=== PATIENT | female | born 1935 | race Caucasian/White ===

== ENCOUNTER → 2017-12-08 | Outpatient (CLI) | payer MEDICARE ==
[~2017-12-08] MED LIST: IOHEXOL 180 MG/ML 10 ML VIAL.; LIDOCAINE 1% PF 2 ML VIAL.; methylPREDNISolone ACETATE 40 MG/ML VIAL.; methylPREDNISolone ACETATE 80 MG/ML VIAL.
== END ==
LOC: PNCL 07:50
DX: M51.16 Intervertebral disc disorders with radiculopathy, lumbar region (principal); K21.9 Gastro-esophageal reflux disease without esophagitis; I10 Essential (primary) hypertension; Z85.3 Personal history of malignant neoplasm of breast; Z90.710 Acquired absence of both cervix and uterus; Z98.890 Other specified postprocedural states; Z88.8 Allergy status to other drugs, medicaments and biological substances
CPT/HCPCS: 62323; J1030; J1040; Q9965

== ENCOUNTER → 2017-12-22 | Outpatient (CLI) | payer MEDICARE | END | disposition home or self-care (01) | LOC: PNCL 07:50 | DX: M51.16 Intervertebral disc disorders with radiculopathy, lumbar region (principal); I10 Essential (primary) hypertension; K21.9 Gastro-esophageal reflux disease without esophagitis; Z85.3 Personal history of malignant neoplasm of breast | CPT/HCPCS: G0463 ==

== ENCOUNTER → 2018-01-07 | Outpatient (CLI) | payer MEDICARE ==
[~2018-01-07] MED LIST changes: -LIDOCAINE 1% PF 2 ML VIAL.; +LIDOCAINE 2% PF 2ML VIAL.
== END | disposition home or self-care (01) ==
LOC: PNCL 08:43
DX: M51.16 Intervertebral disc disorders with radiculopathy, lumbar region (principal); I10 Essential (primary) hypertension; K21.9 Gastro-esophageal reflux disease without esophagitis; Z88.1 Allergy status to other antibiotic agents; Z88.8 Allergy status to other drugs, medicaments and biological substances; Z79.82 Long term (current) use of aspirin; Z79.899 Other long term (current) drug therapy; Z85.3 Personal history of malignant neoplasm of breast; Z90.710 Acquired absence of both cervix and uterus; Z98.890 Other specified postprocedural states
CPT/HCPCS: 62323; J1030; J1040; J2001; Q9965

== ENCOUNTER → 2018-01-21 | Outpatient (CLI) | payer MEDICARE ==
[~2018-01-21] MED LIST changes: +ASPI81TA50 PO; +BENZ200C47 PO; +CA/D1TAB PO; +FLUT16SP NS; -IOHEXOL 180 MG/ML 10 ML VIAL.; -LIDOCAINE 2% PF 2ML VIAL.; +LOSA50TA6 PO; +MENT118G TP; +MULT-650 PO; +PANT20TA2 PO; +[UNRECOGNIZED DRUG - CODE] PO; -methylPREDNISolone ACETATE 40 MG/ML VIAL.; -methylPREDNISolone ACETATE 80 MG/ML VIAL.
--- NOTE | 2018-01-21 14:53 | PAIN ---
DATE OF SERVICE: 01/21/2018 DIAGNOSES: Lumbar radiculopathy with lumbar degenerative disk disease. HISTORY OF PRESENT ILLNESS: The patient is an 82-year-old female who returns for followup status post lumbar epidural steroid injection x 2. The patient reports doing very well, about 80%-90% improvement overall, still some pain in the left posterior gluteus and hip, but much reduced after the second injection. The patient reports it is tingling and dull, but very tolerable, it is only there intermittently. The patient reports pain is 3 on a scale of 10 at its worse, 2 on average, 2 at its least and is a 2 today. The patient reports she is sleeping well at night, increasing her activity with greater distance walking and doing household activities, traveling. She has another trip coming up, which she will be riding in the car as well as an airplane and she is feeling very confident about this. We will have the level of her pain being controlled. The patient reports no new motor or sensory deficits, no new bowel or bladder incontinence or other complaints. PHYSICAL EXAMINATION: VITAL SIGNS: The patient's blood pressure 146/66, pulse 79, respirations 20, temperature is 98.1 degrees Fahrenheit, height is 5 feet 9 inches, weight is 154 pounds. GENERAL: The patient is awake, alert, oriented, appropriate, very pleasant demeanor. HEENT: Head shows normocephalic, atraumatic. The patient wears eyeglasses. Extraocular movements intact, symmetrical. Oral cavity: Mucous membranes moist and pink. Dentition is intact. NECK: Shows anterior throat supple without palpable lymphadenopathy noted. Swallow reflex is symmetrical. CHEST: Shows normal on inspection. Breath sounds clear to auscultation bilaterally. HEART: Shows S1 and S2 clear. No murmurs auscultated. ABDOMEN: Soft, nontender, nondistended. BACK: Shows spine grossly in the midline. Slight exaggeration of thoracic kyphosis, mild flattening of lumbar lordotic curvature. Lumbar paraspinous musculature shows symmetrical on inspection and palpation shows some very mild tenderness in the low lumbar distribution on the left only, but without radiation. The patient has good rotational motion of lumbar spine, both laterally as well as extension and flexion without difficulty. EXTREMITIES: Lower extremities show deep tendon reflexes 2+ in the patellar, 1+ tendo calcaneus tendons are equal. Motor exam is strong with 5/5 dorsiflexion, extension and equal. Peripheral pulses are 1+ posterior tibial. No peripheral edema is noted. Options were discussed with the patient. The patient's chart was reviewed as her current medication regimen and updated. Current review of systems is updated today as well and we will hold on any further injections. At this time, she is doing very well. The patient will increase her activity as tolerated and was counseled as to stretching and strengthening exercises as well as return if necessary if the pain does begin to worsen or return and we will have her return as needed. LUCI WAKEFIELD MD DR: NATALIE/jessica JOB#: [id number] / [id number]
== END | disposition home or self-care (01) ==
LOC: PNCL 08:46
PROVIDERS: ATTEND Anesthesiology
DX: M51.16 Intervertebral disc disorders with radiculopathy, lumbar region (principal)
CPT/HCPCS: G0463

== ENCOUNTER → 2018-08-11 | Outpatient (CLI) | payer MEDICARE ==
[~2018-08-11] MED LIST changes: +ACET500T68 PO; +DONE5TAB56 PO; +LOSA-73 PO; -LOSA50TA6 PO; +METO25TA4 PO; +RANI150T2 PO; +REGADENOSON 0.4 MG/5 ML DISP.SYRIN. IV ONE
--- NOTE | 2018-08-11 11:30 | RAD ---
MR#: [id number] Date of Study: 08/11/2018 Ordering Physician: ARELIS ROJAS, Referring Physician: ARELIS ROJAS, Tech: Radames Keane MBA, RDMS, RVT, RDCS, RTR APPROVED REPORT Patient Location: OUT-PATIENT Laterality:Bilateral Indications Dizziness and Vertigo Doppler Spectral Velocity Analysis Right Left pCCA 91/12 cm/spCCA 128/22 cm/s mCCA 99/14 cm/smCCA 97/14 cm/s dCCA 91/16 cm/sdCCA 75/15 cm/s Bulb 59/11 cm/sBulb 93/14 cm/s ECA 84/ cm/sECA 103/ cm/s pICA 108/27 cm/spICA 70/20 cm/s Dann 96/21 cm/smICA 85/24 cm/s dICA 76/23 cm/sdICA 103/31 cm/s Vert. 64/ cm/sVert. 64/ cm/s Subcl. 86/ cm/sSubcl. 137/ cm/s ICA/CCA 1.09ICA/CCA 0.80 Findings Grayscale images of the bilateral common carotid, internal and external carotid vessels reveals mild intimal hyperplasia later on the left than the right. Spectral waveforms and color Doppler on the internal carotid vessels reveal normal velocities without any focal high-grade stenosis identified. Grayscale images are grossly unremarkable. Normal ICA to C CA ratios noted. Bilateral vertebral velocities are antegrade. Critical Notification Critical Value: No <Conclusion> No significant high-grade internal carotid artery stenosis bilaterally. Signed by : Donn Hernandez, Electronically Approved : 08/11/2018 11:29:57
--- NOTE | 2018-08-11 12:43 | RAD ---
MR#: [id number] Date of Study: 08/11/2018 Ordering Physician: ARELIS ROJAS Referring Physician: YOLY WHITTEN Tech: RT Rosy Frausto) (N) APPROVED REPORT Test Type: Pharmacological Stress Nurse/Tech: Juan C Price RN Test Indications: CP, palpitations Cardiac History: HTN Medications: See EMR Medical History: See EMR Resting ECG: SR Resting Heart Rate: 62 bpm Resting Blood Pressure: 169/67mmHg Pretest Chest Pain: No chest pain Nurse/Tech Notes S1S2. Lung sounds clear. Consent: The procedure was explained to the patient in lay terms. Informed consent was witnessed. Augusto eout was entered into [facility]. History and Stress Test performed by RT Jett (Adam) (N) Pharm. Details Pharmacologic stress testing was performed using 0.4mg per 5ml of regadenoson given intravenously ove r 7-10 seconds. Stress Symptoms No chest pain or symptoms. Pt did c/o dizziness. POST EXERCISE Reason for Termination: Infusion complete Max HR: 96 bpm Max Blood Pressure: 153/60mmHg Chest Pain: No. Arrhythmia: No. ST Change: No. INTERPRETATION Stress EKG Conclusion: The resting EKG shows a sinus rhythm and mild nonspecific ST T wave changes. The stress EKG shows no significant changes from baseline. No EKG evidence of stress induced ischemia. Imaging Protocol IMAGE PROTOCOL: Rest Tc-99m/stress Tc-99m 1 day Rest: Stress: Viability: Radiopharm.Tc99m OgfubjdwhFz20f Sestamibi Dose10.6mCi 33mCi Duration 15min. 12min. Img Date 08/11/2018 08/11/2018 Inj-Img Vsds54guw. 60min. Rest Admin Site:IV - Right AntecubitalAdministrator:RT Rosy Camarena)(N) Stress Admin Site: IV - Right AntecubitalAdministrator: RT Rosy Frausto)(N) STRESS DATA End Diast. Vol.68.0mlAv. Heart Rate74.0bpm End Syst. Vol.13.0mlCO Index BSA0.0L/min Myocardial Oqak965.0gEject. Ryqvgruh43.0% Stress Rates Pk. Fill Rate2.61EDV/secLVtime Pk. Fill 107.54msec Pk. Empty Rate3.28ESV/secLVtime Pk. Pjeol472.20msec 1/3 Pk. Fill1.84EDV/sec Stress Scores Regional WT1.00Summed WT3.00 Regional WM0.00Summed WM2.00 LV Perfusion The stress scans show no significant defects. The rest scans show no significant defects. Nuclear imaging shows no reversible ischemia or infarct. Wall Motion LV systolic function is normal with an ejection fraction of > 70%. LV Perf. Quant 17 Seg. SSS0.00 17 Seg. SRS0.00 17 Seg. SDS0.00 Stress Defect Extent (% LAD)0.00Rest Defect Extent (% LAD)0.00Rev. Defect Extent (% LAD)0.00 Stress Defect Extent (% LCX) 0.00Rest Defect Extent (% LCX)0.00Rev. Defect Extent (% LCX)0.00 Stress Defect Extent (% RCA)0.00Rest Defect Extent (% RCA)0.00Rev. Defect Extent (% RCA)0.00 Stress Defect Extent (% JUSTINA)0.00Rest Defect Extent (% JUSTINA)0.00Rev. Defect Extent (% JUSTINA)0.00 Conclusion 1. No EKG evidence of stress induced ischemia. 2. Nuclear imaging shows no reversible ischemia or infarct. 3. Normal LV systolic function with an ejection fraction of > 70%. 4. Low risk nuclear stress test. Signed by : Shawn Hall MD Electronically Approved : 08/11/2018 12:43:09
--- NOTE | 2018-08-11 12:47 | CARD ---
MR#: [id number] Date of Study: 08/11/2018 Ordering Physician: ARELIS ROJAS, Referring Physician: ARELIS ROJAS Tech: Erica Marcial RDCS APPROVED REPORT EXAM: Two-dimensional and M-mode echocardiogram with Doppler and color Doppler. Other Information Quality : Good INDICATION Dizziness and Vertigo 2D DIMENSIONS RVDd1.4 (2.9-3.5cm)Left Atrium(2D)3.3 (1.6-4.0cm) IVSd1.0 (0.7-1.1cm)Aortic Root(2D)2.8 (2.0-3.7cm) LVDd4.5 (3.9-5.9cm)LVOT Diameter2.0 (1.8-2.4cm) PWd0.8 (0.7-1.1cm)LVDs3.3 (2.5-4.0cm) FS (%) 27.3 %SV48.8 ml LVEF(%)53.3 (>50%) Aortic Valve AoV Peak Leon.109.2cm/sAoV VTI25.4cm AO Peak GR.4.8mmHgLVOT Peak Leon.84.1cm/s LVOT VTI 18.87cmAO Mean GR.3mmHg DESEAN (VMAX)2.05jy1ETJ (VTI)2.32cm2 Mitral Valve MV E Kzoghbjv09.2cm/sMV DECEL COEH677gx MV A Fqnezdqg57.6cm/sMV PKG169hz E/A Ratio0.8MVA (PHT)2.10cm2 TDI E/Lateral E'12.8E/Medial E'18.8 Tricuspid Valve TR P. Goqfpgrr591nx/sRAP WUWNXVPA1cdTv TR Peak Gr.56lzLmIISP85dyJh Pulmonary Vein S1 Qabsihzc60.8cm/sD2 Qdepxodz39.5cm/s LEFT VENTRICLE The left ventricle is normal size. There is normal left ventricular wall thickness. The left ventricu lar systolic function is low normal. LV ejection fraction is 50-55%. There is normal LV segmental wal l motion. Transmitral Doppler flow pattern is Grade I-abnormal relaxation pattern. RIGHT VENTRICLE The right ventricle is normal size. The right ventricular systolic function is normal. ATRIA The left atrium size is normal. The right atrium size is normal. The interatrial septum is intact wit h no evidence for an atrial septal defect or patent foramen ovale as noted on 2-D or Doppler imaging. AORTIC VALVE The aortic valve is calcified but opens well. Doppler and Color Flow revealed no significant aortic r egurgitation. There is no significant aortic valvular stenosis. MITRAL VALVE The mitral valve is normal in structure and function. There is no evidence of mitral valve prolapse. There is no mitral valve stenosis. Doppler and Color-flow revealed mild mitral regurgitation. TRICUSPID VALVE The tricuspid valve is normal in structure and function. Doppler and Color Flow revealed trace tricus pid regurgitation. The PA pressure was estimated at 25 mmHg. There is no tricuspid valve stenosis. PULMONIC VALVE The pulmonic valve is not well visualized. Doppler and Color Flow revealed mild pulmonic valvular reg urgitation. There is no pulmonic valvular stenosis. GREAT VESSELS The aortic root is normal in size. The ascending aorta is normal in size. The IVC is normal in size a nd collapses >50% with inspiration. PERICARDIAL EFFUSION There is no evidence of significant pericardial effusion. Critical Notification Critical Value: No <Conclusion> The left ventricle is normal size. The left ventricular systolic function is low normal. LV ejection fraction is 50-55%. There is no significant aortic valvular stenosis. Doppler and Color Flow revealed no significant aortic regurgitation. Doppler and Color-flow revealed mild mitral regurgitation. Doppler and Color Flow revealed trace tricuspid regurgitation. The PA pressure was estimated at 25 mmHg. Signed by : Shawn Hall MD Electronically Approved : 08/11/2018 12:46:37
== END | disposition home or self-care (01) ==
LOC: NM 07:16
PROVIDERS: ATTEND Internal Medicine Cardiovascular Disease
DX: I08.8 Other rheumatic multiple valve diseases (principal); I77.3 Arterial fibromuscular dysplasia; I10 Essential (primary) hypertension; I25.10 Atherosclerotic heart disease of native coronary artery without angina pectoris; R00.8 Other abnormalities of heart beat; Z79.01 Long term (current) use of anticoagulants
CPT/HCPCS: 78452; 93017; 93306; 93880; 96374; A9500; J2785

== ENCOUNTER 2018-10-24 12:35 | Inpatient (IN) | payer MEDICARE ==
[~2018-10-24] VITALS: Ht 175.3 cm; Wt 68.5 kg
[~2018-10-24 12:35] MED LIST changes: -ACET500T68 PO; -DONE5TAB56 PO; -METO25TA4 PO; -RANI150T2 PO; -REGADENOSON 0.4 MG/5 ML DISP.SYRIN. IV ONE
[2018-10-24 13:42] LABS: BASO # 0.1 x10^3/uL (0.0-0.2); BASO % 1 % (0-3); EOS # 0.3 x10^3/uL (0.0-0.7); EOS % 5 % (0-3); HEMATOCRIT 38.7 % (36.0-47.0); HEMOGLOBIN 12.9 g/dL (12.0-15.5); LYMPH # 1.5 x10^3/uL (1.0-4.8); LYMPH % 24 % (24-48); MEAN CORPUSCULAR HEMOGLOBIN 30 pg (25-35); MEAN CORPUSCULAR HGB CONC 33 g/dL (31-37); MEAN CORPUSCULAR VOLUME 91 fL (79-100); MONO # 1.1 x10^3/uL (0.0-1.1); MONO % 17 % (0-9); NEUT # 3.4 x10^3uL (1.8-7.7); NEUT % 54 % (31-73); PLATELET COUNT 195 x10^3/uL (140-400); RED BLOOD COUNT 4.27 x10^6/uL (3.50-5.40); RED CELL DISTRIBUTION WIDTH 13.8 % (11.5-14.5); WHITE BLOOD COUNT 6.4 x10^3/uL (4.0-11.0)
--- NOTE | 2018-10-24 13:46 | RAD ---
CT HEAD INDICATION: Dizziness COMPARISON: None Available. Exposure: One or more of the following individualized dose reduction techniques were utilized for this examination: 1. Automated exposure control 2. Adjustment of the mA and/or kV according to patient size 3. Use of iterative reconstruction technique TECHNIQUE: 5 mm contiguous axial images were obtained from the skull base to the vertex in both bone and soft tissue algorithm. FINDINGS: Mild bilateral periventricular white matter hypodensities likely chronic small vessel ischemic disease. No evidence of acute intracranial hemorrhage. No extra-axial fluid collections. No mass effect or midline shift. Ventricular size is appropriate. Basal cisterns are patent. No fractures identified.Zaragoza-white differentiation is preserved.Globes and orbits are within normal limits. Paranasal sinuses and mastoid air cells are clear. IMPRESSION: No acute intracranial findings. Electronically signed by: Sp Younger MD (10/24/2018 1:44 PM) [facility]
[2018-10-24 13:53] LABS: CALCIUM 9.5 mg/dL (8.5-10.1)
[2018-10-24 13:58] LABS: ALBUMIN 3.6 g/dL (3.4-5.0); MAGNESIUM 1.9 mg/dL (1.8-2.4); TOTAL BILIRUBIN 0.7 mg/dL (0.2-1.0); TOTAL PROTEIN 7.2 g/dL (6.4-8.2)
--- NOTE | 2018-10-24 14:08 | RAD ---
EXAM: CHEST 1 VIEW History: Dizziness COMPARISON: 02/25/2016 TECHNIQUE: Single portable radiograph of the chest FINDINGS: The cardiac silhouette is unremarkable. Mild prominent interstitial lung markings likely chronic interstitial changes. The costophrenic sulci are clear and well demarcated. IMPRESSION: Mild prominent bilateral interstitial lung markings likely chronic interstitial changes. Electronically signed by: Sp Younger MD (10/24/2018 2:06 PM) [facility]
[2018-10-24 14:17] LABS: BILIRUBIN,URINE NEGATIVE (NEG); CLARITY,URINE CLEAR; COLOR,URINE YELLOW; NITRITE,URINE NEGATIVE (NEG); PROTEIN,URINE NEGATIVE (NEG-TRACE); UROBILINOGEN,URINE 0.2 mg/dL (0.2 mg/dL)
[2018-10-24 14:24] LABS: BACTERIA,URINE 0 /HPF (0-FEW); RBC,URINE RARE /HPF (0-2); SQUAMOUS EPITHELIAL CELL,UR OCC /LPF; WBC,URINE RARE /HPF (0-4)
--- NOTE | 2018-10-24 14:31 | PHYS DOC ---
Past Medical History Past Medical History: GERD, Hypertension Additional Past Medical Histor: MEMORY LOSS Past Surgical History: No Surgical History Alcohol Use: None Drug Use: None Adult General Chief Complaint Chief Complaint: DIZZY/LIGHT HEADED [facility] HPI Patient is a 83 year old female who presents with complaining of dizziness. Patient complaining of generalized weakness and dizziness that getting worse with mild activity for the last 1 week with mild exertional shortness of breath. Patient has chest pain, fever and chills, focal neuro deficit, palpitation. Patient had heart rate of 45 today and her primary care physician recommended to come to ER. Patient taking metoprolol 25 mg twice a day. Review of Systems Review of Systems Constitutional: Denies fever or chills [] Eyes: Denies change in visual acuity, redness, or eye pain [] HENT: Denies nasal congestion or sore throat [] Respiratory: Denies cough or shortness of breath [] Cardiovascular: No additional information not addressed in HPI [] GI: Denies abdominal pain, nausea, vomiting, bloody stools or diarrhea [] : Denies dysuria or hematuria [] Musculoskeletal: Denies back pain or joint pain [] Integument: Denies rash or skin lesions [] Neurologic: Denies headache, focal weakness or sensory changes [] Endocrine: Denies polyuria or polydipsia [] All other systems were reviewed and found to be within normal limits, except as documented in this note. Allergies Allergies Allergies Coded Allergies Type Severity Reaction Last Updated Verified clindamycin Allergy Severe #couldnt function" 12/08/17 Yes prednisone Allergy Severe couldnt function" 12/08/17 Yes Sulfa (Sulfonamide Antibiotics) Adverse Reaction Intermediate Nausea 12/08/17 Yes Physical Exam Physical Exam Constitutional: Well developed, well nourished, mild distress, non-toxic appearance. [] HENT: Normocephalic, atraumatic, oropharynx moist, no oral exudates, nose normal. [] Eyes: PERRLA, EOMI, conjunctiva normal, no discharge. [] Neck: Normal range of motion, no tenderness, supple, no stridor. [] Cardiovascular: Bradycardia, no murmur [] Lungs & Thorax: Bilateral breath sounds clear to auscultation [] Abdomen: Bowel sounds normal, soft, no tenderness, no masses, no pulsatile masses. [] Skin: Warm, dry, no erythema, no rash. [] Back: No tenderness, no CVA tenderness. [] Extremities: No tenderness, no cyanosis, no clubbing, ROM intact, no edema. [] Neurologic: Alert and oriented X 3, normal motor function, normal sensory function, no focal deficits noted. [] Psychologic: Affect normal, judgement normal, mood normal. [] Current Patient Data Vital Signs Vital Signs Date Time Temp Pulse Resp B/P (MAP) Pulse Ox O2 Delivery O2 Flow Rate FiO2 10/24/18 13:25 46 16 97 10/24/18 13:15 98.2 168/53 (91) Room Air 98.2 Lab Values Laboratory Tests Test 10/24/18 13:28 White Blood Count 6.4 x10^3/uL (4.0-11.0) Red Blood Count 4.27 x10^6/uL (3.50-5.40) Hemoglobin 12.9 g/dL (12.0-15.5) Hematocrit 38.7 % (36.0-47.0) Mean Corpuscular Volume 91 fL (79-100) Mean Corpuscular Hemoglobin 30 pg (25-35) Mean Corpuscular Hemoglobin Concent 33 g/dL (31-37) Red Cell Distribution Width 13.8 % (11.5-14.5) Platelet Count 195 x10^3/uL (140-400) Neutrophils (%) (Auto) 54 % (31-73) Lymphocytes (%) (Auto) 24 % (24-48) Monocytes (%) (Auto) 17 % (0-9) H Eosinophils (%) (Auto) 5 % (0-3) H Basophils (%) (Auto) 1 % (0-3) Neutrophils # (Auto) 3.4 x10^3uL (1.8-7.7) Lymphocytes # (Auto) 1.5 x10^3/uL (1.0-4.8) Monocytes # (Auto) 1.1 x10^3/uL (0.0-1.1) Eosinophils # (Auto) 0.3 x10^3/uL (0.0-0.7) Basophils # (Auto) 0.1 x10^3/uL (0.0-0.2) Sodium Level 142 mmol/L (136-145) Potassium Level 4.0 mmol/L (3.5-5.1) Chloride Level 104 mmol/L (98-107) Carbon Dioxide Level 29 mmol/L (21-32) Anion Gap 9 (6-14) Blood Urea Nitrogen 15 mg/dL (7-20) Creatinine 1.0 mg/dL (0.6-1.0) Estimated GFR (Cockcroft-Gault) 53.0 BUN/Creatinine Ratio 15 (6-20) Glucose Level 113 mg/dL (70-99) H Lactic Acid Level 1.0 mmol/L (0.4-2.0) Calcium Level 9.5 mg/dL (8.5-10.1) Magnesium Level 1.9 mg/dL (1.8-2.4) Total Bilirubin 0.7 mg/dL (0.2-1.0) Aspartate Amino Transferase (AST) 20 U/L (15-37) Alanine Aminotransferase (ALT) 19 U/L (14-59) Alkaline Phosphatase 77 U/L (46-116) Creatine Kinase 111 U/L (26-192) Troponin I Quantitative < 0.017 ng/mL (0.000-0.055) VS-Spd-C-Type Natriuretic Peptide 548 pg/mL (0-449) H Total Protein 7.2 g/dL (6.4-8.2) Albumin 3.6 g/dL (3.4-5.0) Albumin/Globulin Ratio 1.0 (1.0-1.7) Lipase 93 U/L (73-393) Laboratory Tests 10/24/18 13:28 Laboratory Tests 10/24/18 13:28 EKG EKG EKG interpreted by me. EKG at 1309 showed sinus bradycardia at rate of 45, right axis, poor R-wave progress in anteroseptal leads, no acute ST and T-wave abnormalities. Radiology/Procedures Radiology/Procedures [facility] [address] [place], [place] [id number] IMAGING REPORT Signed PATIENT: JIM GARY ACCOUNT: [id number] : 1935 LOCATION: [address] [place] [address] AGE: 83 SEX: F EXAM STATUS: ADM IN ORD. PHYSICIAN: EL LANDRY MD REASON: dizziness PROCEDURE: PORTABLE CHEST 1V EXAM: CHEST 1 VIEW History: Dizziness COMPARISON: 02/25/2016 TECHNIQUE: Single portable radiograph of the chest FINDINGS: The cardiac silhouette is unremarkable. Mild prominent interstitial lung markings likely chronic interstitial changes. The costophrenic sulci are clear and well demarcated. IMPRESSION: Mild prominent bilateral interstitial lung markings likely chronic interstitial changes. Electronically signed by: Sp Younger MD (10/24/2018 2:06 PM) [facility] DICTATED and SIGNED BY: SP YOUNGER MD DATE: 10/24/18 1406 [facility] [address] [place], [place] [id number] IMAGING REPORT Signed PATIENT: JIM GARY ACCOUNT: [id number] : 1935 LOCATION: ER AGE: 83 SEX: F EXAM STATUS: REG ER ORD. PHYSICIAN: EL LANDRY MD REASON: dizziness PROCEDURE: CT HEAD WO CONTRAST CT HEAD INDICATION: Dizziness COMPARISON: None Available. Exposure: One or more of the following individualized dose reduction techniques were utilized for this examination: 1. Automated exposure control 2. Adjustment of the mA and/or kV according to patient size 3. Use of iterative reconstruction technique TECHNIQUE: 5 mm contiguous axial images were obtained from the skull base to the vertex in both bone and soft tissue algorithm. FINDINGS: Mild bilateral periventricular white matter hypodensities likely chronic small vessel ischemic disease. No evidence of acute intracranial hemorrhage. No extra-axial fluid collections. No mass effect or midline shift. Ventricular size is appropriate. Basal cisterns are patent. No fractures identified.Zaragoza-white differentiation is preserved.Globes and orbits are within normal limits. Paranasal sinuses and mastoid air cells are clear. IMPRESSION: No acute intracranial findings. Electronically signed by: Sp Younger MD (10/24/2018 1:44 PM) [facility] DICTATED and SIGNED BY: SP YOUNGER MD DATE: 10/24/18 0570 Course & Med Decision Making Course & Med Decision Making Pertinent Labs and Imaging studies reviewed. (See chart for details) Evaluation of patient in ER showed 83-year-old female patient with complaining of episodes of dizziness and generalized weakness for the last 1 week. Patient has 45 with taking metoprolol 25 mg twice a day. Patient had unremarkable physical exam and labs and CT head and chest x-ray and EKG. Patient requiring admission for further evaluation and treatment. Discussed with Dr. Phillips who is in agreement with admission. Discussed findings and plan with patient and family, who acknowledge understanding and agreement. Accepting physician did not recommend consulted with awning spreader at this time. Dragon Disclaimer Dragon Disclaimer This electronic medical record was generated, in whole or in part, using a voice recognition dictation system. Departure Departure Impression: Primary Impression: Dizziness Additional Impressions: Bradycardia Generalized weakness Disposition: ADMITTED INPATIENT Admitting Physician: Arelis Phillips Condition: IMPROVED Referrals: ARELIS PHILLIPS MD (PCP) Problem Qualifiers EL LANDRY MD October 24, 2018 14:31
[2018-10-24 15:00] VITALS: BP 171/55
--- NOTE | 2018-10-24 15:45 | NUR ---
Patient admitted to room 107 at 1510. A/O x4, able to answer all admission questions. Oriented to unit routine, call light. Patient's niece, Campbell SOARES, at bedside. Informed of POC. RN discussed patient's HR, 38-45, with Dr. Ro over phone. Order received to keep patient NPO after midnight for possible PPM in AM. Patient is resting comfortably in bed, call light w/in reach. No complaints of pain at this time. BP WNL, pharmacy verified. See assessments, VS.
[2018-10-24 16:00] VITALS: BP 147/61
[2018-10-24 19:00] VITALS: BP 138/55
[2018-10-24 22:30] VITALS: BP 118/50
[2018-10-24] MEDS ORDERED: DONE5TAB56 PO (23:11)
[2018-10-24] MEDS ORDERED: RANI150T2 PO (23:11)
[2018-10-25 03:07] VITALS: BP 153/57
--- NOTE | 2018-10-25 07:00 | EKG ---
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
[2018-10-25] MEDS ORDERED: METO25TA4 PO (07:16)
--- NOTE | 2018-10-25 07:32 | PDOC ---
PROGRESS NOTES Subjective Subjective Patient reports feeling less dizzy. Denies pain or other concerns. Objective Objective Vital Signs Date Time Temp Pulse Resp B/P (MAP) Pulse Ox O2 Delivery O2 Flow Rate FiO2 10/25/18 03:07 98.6 53 16 153/57 (89) 94 Nasal Cannula 2.0 98.6 Intake and Output 10/25/18 06:59 Intake Total 500 ml Balance 500 ml Intake Oral 500 ml # Voids 3 Physical Exam Abdomen: Normal bowel sounds, Soft, No tenderness Heart: Regular rate Extremities: No edema General: Alert, Oriented X3, No acute distress Lungs: Clear to auscultation Assessment Assessment Problems Medical Problems: (1) Bradycardia Status: Acute (2) Dizziness Status: Acute (3) Generalized weakness Status: Acute Plan Plan of Care 1. Bradycardia - patient was found to have HR in the 40's at home for the past few day. Office chart indicates she had been started on Metoprolol 25mg BID by Dr Ro due to some tachyarrhythmias seen on event recorder. Heart rate has improved overnight and is now in the low 60's. Cardiology consult pending. Hope patient will be able to return home later today if OK with Cardiology. Lab and imaging unremarkable. 2. HTN - continue Losartan. 3. mild memory loss - patient appears at baseline, continue Aricept. Comment Review of Relevant I have reviewed the following items rajesh (where applicable) has been applied. Labs Laboratory Tests Test 10/24/18 13:28 10/24/18 14:05 White Blood Count 6.4 x10^3/uL (4.0-11.0) Red Blood Count 4.27 x10^6/uL (3.50-5.40) Hemoglobin 12.9 g/dL (12.0-15.5) Hematocrit 38.7 % (36.0-47.0) Mean Corpuscular Volume 91 fL (79-100) Mean Corpuscular Hemoglobin 30 pg (25-35) Mean Corpuscular Hemoglobin Concent 33 g/dL (31-37) Red Cell Distribution Width 13.8 % (11.5-14.5) Platelet Count 195 x10^3/uL (140-400) Neutrophils (%) (Auto) 54 % (31-73) Lymphocytes (%) (Auto) 24 % (24-48) Monocytes (%) (Auto) 17 % (0-9) Eosinophils (%) (Auto) 5 % (0-3) Basophils (%) (Auto) 1 % (0-3) Neutrophils # (Auto) 3.4 x10^3uL (1.8-7.7) Lymphocytes # (Auto) 1.5 x10^3/uL (1.0-4.8) Monocytes # (Auto) 1.1 x10^3/uL (0.0-1.1) Eosinophils # (Auto) 0.3 x10^3/uL (0.0-0.7) Basophils # (Auto) 0.1 x10^3/uL (0.0-0.2) Sodium Level 142 mmol/L (136-145) Potassium Level 4.0 mmol/L (3.5-5.1) Chloride Level 104 mmol/L (98-107) Carbon Dioxide Level 29 mmol/L (21-32) Anion Gap 9 (6-14) Blood Urea Nitrogen 15 mg/dL (7-20) Creatinine 1.0 mg/dL (0.6-1.0) Estimated GFR (Cockcroft-Gault) 53.0 BUN/Creatinine Ratio 15 (6-20) Glucose Level 113 mg/dL (70-99) Lactic Acid Level 1.0 mmol/L (0.4-2.0) Calcium Level 9.5 mg/dL (8.5-10.1) Magnesium Level 1.9 mg/dL (1.8-2.4) Total Bilirubin 0.7 mg/dL (0.2-1.0) Aspartate Amino Transf (AST/SGOT) 20 U/L (15-37) Alanine Aminotransferase (ALT/SGPT) 19 U/L (14-59) Alkaline Phosphatase 77 U/L (46-116) Creatine Kinase 111 U/L (26-192) Troponin I Quantitative < 0.017 ng/mL (0.000-0.055) GA-Lhc-G-Type Natriuretic Peptide 548 pg/mL (0-449) Total Protein 7.2 g/dL (6.4-8.2) Albumin 3.6 g/dL (3.4-5.0) Albumin/Globulin Ratio 1.0 (1.0-1.7) Lipase 93 U/L (73-393) Urine Collection Type Void Urine Color Yellow Urine Clarity Clear Urine pH 6.0 Urine Specific [place] <=1.005 Urine Protein Negative mg/dL (NEG-TRACE) Urine Glucose (UA) Negative mg/dL (NEG) Urine Ketones (Stick) Negative mg/dL (NEG) Urine Blood Negative (NEG) Urine Nitrite Negative (NEG) Urine Bilirubin Negative (NEG) Urine Urobilinogen Dipstick 0.2 mg/dL (0.2 mg/dL) Urine Leukocyte Esterase Small (NEG) Urine RBC Rare /HPF (0-2) Urine WBC Rare /HPF (0-4) Urine Squamous Epithelial Cells Occ /LPF Urine Bacteria 0 /HPF (0-FEW) Laboratory Tests Test 10/24/18 13:28 10/24/18 14:05 White Blood Count 6.4 x10^3/uL (4.0-11.0) Red Blood Count 4.27 x10^6/uL (3.50-5.40) Hemoglobin 12.9 g/dL (12.0-15.5) Hematocrit 38.7 % (36.0-47.0) Mean Corpuscular Volume 91 fL (79-100) Mean Corpuscular Hemoglobin 30 pg (25-35) Mean Corpuscular Hemoglobin Concent 33 g/dL (31-37) Red Cell Distribution Width 13.8 % (11.5-14.5) Platelet Count 195 x10^3/uL (140-400) Neutrophils (%) (Auto) 54 % (31-73) Lymphocytes (%) (Auto) 24 % (24-48) Monocytes (%) (Auto) 17 % (0-9) Eosinophils (%) (Auto) 5 % (0-3) Basophils (%) (Auto) 1 % (0-3) Neutrophils # (Auto) 3.4 x10^3uL (1.8-7.7) Lymphocytes # (Auto) 1.5 x10^3/uL (1.0-4.8) Monocytes # (Auto) 1.1 x10^3/uL (0.0-1.1) Eosinophils # (Auto) 0.3 x10^3/uL (0.0-0.7) Basophils # (Auto) 0.1 x10^3/uL (0.0-0.2) Sodium Level 142 mmol/L (136-145) Potassium Level 4.0 mmol/L (3.5-5.1) Chloride Level 104 mmol/L (98-107) Carbon Dioxide Level 29 mmol/L (21-32) Anion Gap 9 (6-14) Blood Urea Nitrogen 15 mg/dL (7-20) Creatinine 1.0 mg/dL (0.6-1.0) Estimated GFR (Cockcroft-Gault) 53.0 BUN/Creatinine Ratio 15 (6-20) Glucose Level 113 mg/dL (70-99) Lactic Acid Level 1.0 mmol/L (0.4-2.0) Calcium Level 9.5 mg/dL (8.5-10.1) Magnesium Level 1.9 mg/dL (1.8-2.4) Total Bilirubin 0.7 mg/dL (0.2-1.0) Aspartate Amino Transf (AST/SGOT) 20 U/L (15-37) Alanine Aminotransferase (ALT/SGPT) 19 U/L (14-59) Alkaline Phosphatase 77 U/L (46-116) Creatine Kinase 111 U/L (26-192) Troponin I Quantitative < 0.017 ng/mL (0.000-0.055) EK-Lqk-T-Type Natriuretic Peptide 548 pg/mL (0-449) Total Protein 7.2 g/dL (6.4-8.2) Albumin 3.6 g/dL (3.4-5.0) Albumin/Globulin Ratio 1.0 (1.0-1.7) Lipase 93 U/L (73-393) Urine Collection Type Void Urine Color Yellow Urine Clarity Clear Urine pH 6.0 Urine Specific [place] <=1.005 Urine Protein Negative mg/dL (NEG-TRACE) Urine Glucose (UA) Negative mg/dL (NEG) Urine Ketones (Stick) Negative mg/dL (NEG) Urine Blood Negative (NEG) Urine Nitrite Negative (NEG) Urine Bilirubin Negative (NEG) Urine Urobilinogen Dipstick 0.2 mg/dL (0.2 mg/dL) Urine Leukocyte Esterase Small (NEG) Urine RBC Rare /HPF (0-2) Urine WBC Rare /HPF (0-4) Urine Squamous Epithelial Cells Occ /LPF Urine Bacteria 0 /HPF (0-FEW) Medications Current Medications Aspirin (Ecotrin) 81 mg DAILY PO ; Start 10/25/18 at 09:00; Status UNV Fluticasone Propionate (Flonase) 2 spray DAILY NS ; Start 10/25/18 at 09:00; Status UNV Losartan Potassium (Cozaar) 100 mg DAILY PO ; Start 10/25/18 at 09:00; Status UNV Non-Formulary Medication (Benzonatate ) 1 cap TID PO ; Start 10/25/18 at 09:00; Status UNV Non-Formulary Medication (Donepezil Hcl (Aricept)) 1 tab QHS PO ; Start 10/25/18 at 21:00; Status UNV Non-Formulary Medication (Pantoprazole Sodium (Protonix)) 40 mg DAILY PO ; Start 10/25/18 at 09:00; Status UNV Non-Formulary Medication (Ranitidine Hcl ) 150 mg BID PO ; Start 10/25/18 at 09:00; Status UNV Active Scripts Active Metoprolol Tartrate 25 Mg Tablet 1 Tab PO BID Reported Ranitidine Hcl 150 Mg Tablet 150 Mg PO BID Aricept (Donepezil Hcl) 5 Mg Tablet 1 Tab PO QHS Biofreeze (Menthol) 118 Ml Gel..ml. 118 Ml TP Benzonatate 200 Mg Capsule 1 Cap PO TID Allergy Relief (Clemastine Fumarate) 1.34 Mg Tablet 1.34 Mg PO DAILY Aspir-Low (Aspirin) 81 Mg Tablet. 81 Mg PO Caltrate 600+D Plus Tablet (Ca/D3/Mag#11/Zinc/Svp [employer]/Dmitriy/Bor) 1 Each Tablet 1 Each PO Centrum Silver Women Tablet (Multivits-Min/Iron/FA/Lutein) 1 Each Tablet 1 Each PO Fluticasone Propionate Nasal [place] (Fluticasone Propionate) 16 Gm [place].susp 2 [place] NS DAILY Losartan Potassium 50 Mg Tablet 100 Mg PO DAILY Protonix (Pantoprazole Sodium) 20 Mg Tablet. 40 Mg PO DAILY Vitals/I & O Vital Sign - Last 24 Hours 10/24/18 10/24/18 10/24/18 10/24/18 13:11 13:15 13:25 13:44 Temp 98.2 98.2 Pulse 44 42 46 46 Resp 16 14 16 14 B/P (MAP) 168/53 (91) Pulse Ox 97 97 97 99 O2 Delivery Room Air 10/24/18 10/24/18 10/24/18 10/24/18 14:05 15:00 16:00 16:00 Temp 98.8 98.8 Pulse 42 44 41 Resp 16 12 15 B/P (MAP) 171/55 (93) 147/61 (89) Pulse Ox 98 96 95 O2 Delivery Room Air Room Air Room Air 10/24/18 10/24/18 10/24/18 10/25/18 19:00 19:55 22:30 03:07 Temp 98.1 98.3 98.6 98.1 98.3 98.6 Pulse 48 53 53 Resp 16 16 16 B/P (MAP) 138/55 (82) 118/50 (72) 153/57 (89) Pulse Ox 97 94 94 O2 Delivery Nasal Cannula Room Air Nasal Cannula Nasal Cannula O2 Flow Rate 2.0 2.0 2.0 Intake and Output 10/24/18 10/24/18 10/25/18 14:59 22:59 06:59 Intake Total 500 ml 0 ml Balance 500 ml 0 ml JANI PEREZ MD October 25, 2018 07:32
[2018-10-25 08:00] VITALS: BP 153/55
--- NOTE | 2018-10-25 08:07 | SSS ---
ADMIT DATE: 10/25/2018 DISCHARGE DATE: 10/27/18. TWENTY THREE-HOUR SUMMARY This is a combined history and physical and discharge summary. CHIEF COMPLAINT: Bradycardia. HISTORY OF PRESENT ILLNESS: The patient is an 83-year-old female who lives at home with some assistance from family members. On the day of admission, the patient's niece called our answering service and reported that the patient's heart rate at home was in the 40s. Looking back at her blood pressure monitor, it had apparently been that way for at least several days. The patient was complaining of lightheadedness and fatigue. She was advised to bring the patient to the Emergency Room, which she did. The patient's heart rate was 45 upon presentation to the ER and she was admitted for further treatment. PAST MEDICAL HISTORY: Hypertension, allergic rhinitis, overactive bladder, GERD, mild memory loss. PAST SURGICAL HISTORY: RADHA-BSO, left mastectomy for benign cause. ALLERGIES: The patient is allergic to SULFA, CLINDAMYCIN and PREDNISONE. HOME MEDICATIONS: Aspirin 81 mg daily, Tessalon Perles p.r.n., donepezil 5 mg daily, Flonase 2 sprays each nostril daily, losartan 100 mg daily, metoprolol tartrate 25 mg b.i.d. (The patient had just been started on this medication recently by Dr. Ro due to some tachyarrhythmias seen on an event monitor), Protonix 40 mg daily, ranitidine 150 mg b.i.d. FAMILY HISTORY: Noncontributory. SOCIAL HISTORY: The patient is . She has never smoked cigarettes and does not drink alcohol. REVIEW OF SYSTEMS: The patient denies fever or chills. Her allergies have been fairly well controlled with her usual medication. She has a mild chronic cough, which has not worsened recently. She denies chest pain or palpitations. She has not had syncope. She denies abdominal pain, nausea, vomiting or problems with her bowels. She recently resumed taking oxybutynin daily and feels that it may be helping her overactive bladder symptoms somewhat. PHYSICAL EXAMINATION: GENERAL: The patient is alert and oriented x 3, although forgetful about her medications. She is lying comfortably in bed, in no acute distress. HEENT: PERRL, EOMI, sclerae clear. Oropharynx, mucous membranes moist. NECK: Supple without lymphadenopathy. CHEST: Clear to auscultation. CARDIOVASCULAR: Regular rhythm without murmur. Heart rate is 60 on telemetry. ABDOMEN: Soft, nontender, normoactive bowel sounds are present. EXTREMITIES: Without edema. HOSPITAL COURSE: The patient was admitted and placed on telemetry. She remains in sinus rhythm. The bradycardia has gradually improved overnight and her heart rate is now in the low 60s. She will be seen by Dr. Ro. It is anticipated she may be able to return home later today, metoprolol has been discontinued. The patient's labs and imaging were unremarkable for signs of acute infection or other problems that could have caused her symptoms. The patient's other chronic medical problems are stable and she is advised to continue all of her other medications. ADDENDUM: The patient was not discharged on 10/25/18. 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 Dr Ro recommended a permanent pacemaker due to this and the tachy arrhythmias seen on her outpatient monitor. Patient agreed to the procedure and on 10/26/18 Dr Ro placed a pacemaker. Patient remained stable postoperatively. She was paced at times but otherwise maintained sinus rhythm. FINAL DIAGNOSES: 1. Carotid sinus hypersensitivity 2. Hypertension. 3. Mild memory loss. 4. Allergic rhinitis. 5. Gastroesophageal reflux disease. DISCHARGE MEDICATIONS: Remain the same as at admission except that the Aricept was discontinued. FOLLOWUP: With Dr. Phillips as needed. Follow up with Dr. Ro as advised. JANI PHILLIPS MD DR: [email or web address]/[email or web address] JOB#: [id number] / [id number] BAKARI
[2018-10-25] MEDS ORDERED: BENZONATATE 100 MG CAPSULE. PO PRN (09:00)
[2018-10-25] MEDS ORDERED: NON FORMULARY ITEM (Ranitidine Hcl 150 MG) PO SCH (09:00)
[2018-10-25] MEDS: ASPIRIN ENTERIC COATED 81 MG TABLET.DR. PO SCH (09:04)
[2018-10-25] MEDS: PANTOPRAZOLE 40 MG TABLET.DR. PO SCH (09:04)
[2018-10-25] MEDS: LOSARTAN POTASSIUM 50 MG TABLET. PO SCH (09:07)
[2018-10-25] MEDS: FLUTICASONE 50MCG/NASAL SPRAY 16GM BOTTLE. NS SCH (09:08)
[2018-10-25 12:00] VITALS: BP 148/57
--- NOTE | 2018-10-25 12:46 | PDOC2 ---
TOMMIE ZAPATA PORCELAIN TECHNICIAN 10/25/18 1246: CARDIAC CONSULT DATE OF CONSULT Date of Consult DATE: 10/25/18 TIME: 12:39 REASON FOR CONSULT Reason for Consult: Bradycardia REFERRING PHYSICIAN Referring Physician: Dr. Phillips SOURCE Source: Chart review, Patient HISTORY OF PRESENT ILLNESS HISTORY OF PRESENT ILLNESS This is an 83 yo female who presented secondary to dizziness. Is normally very active at home. Reports feeling tired, weak, and dizzy for the last month or so. Has been monitoring her blood pressure and pulse for the last week. HR has been near 40-45 bmp. Niece called primary care to be evaluated. HR was noted to be near 45 at the office and was referred to the ED for further evaluation and treatment. Home metoprolol has been held- HR has been near 55 today, sinus duran with PACs. Has been feeling much better and dizziness has resolved. Did have episode in the upper 30's today when she sat down the chair following using restroom. No significant dizziness at his time. Patiet denies any recent chest pain, palpitations, SOA, diaphoresis, or nausea/vomiting. No recent illness/fe vers. Was seen in our office earlier this year for evaluation of dizziness, suspicious for vertigo. Had a 1 week event monitor that was notable for brief episodes of atrial tachycardia and one episode of NSVT. No significant bradycardia or pauses were noted. Patient was initiated on metoprolol at this time. Carotid massage perform at bedside. Patient had near 3 second pause followed by another 2 second pause and became significantly dizzy following. PAST MEDICAL HISTORY Cardiovascular: HTN Pulmonary: No pertinent hx CENTRAL NERVOUS SYSTEM: Vertigo GI: GERD Heme/Onc: Cancer (breast) Hepatobiliary: No pertinent hx Psych: No pertinent hx Musculoskeletal: Osteoarthritis Infectious disease: No pertinent hx Renal/: Other (urgency ) Endocrine: No pertinent hx Dermatology: No pertinent hx PAST SURGICAL HISTORY Past Surgical History: Hysterectomy, Other (left mastectomy ) FAMILY HISTORY Family History: Heart Disease, High Cholestrol, Hypertension SOCIAL HISTORY Smoke: No ALCOHOL: none Drugs: None Lives: with Family CURRENT MEDICATIONS CURRENT MEDICATIONS Current Medications Medications (Trade) Dose Ordered Sig/Francesca Route PRN Reason Start Time Stop Time Status Last Admin Dose Admin Aspirin (Ecotrin) 81 mg DAILY08 PO 10/25/18 08:00 10/25/18 09:04 Fluticasone Propionate (Flonase) 2 spray DAILY NS 10/25/18 09:00 10/25/18 09:08 Losartan Potassium (Cozaar) 100 mg DAILY PO 10/25/18 09:00 10/25/18 09:07 Pantoprazole Sodium (Protonix) 40 mg DAILYAC PO 10/25/18 09:00 10/25/18 09:04 ALLERGIES ALLERGIES: Coded Allergies: clindamycin (Verified Allergy, Severe, "couldnt function", 10/25/18) prednisone (Verified Allergy, Severe, "couldnt function", 10/25/18) Sulfa (Sulfonamide Antibiotics) (Verified Adverse Reaction, Intermediate, Nausea , 12/08/17) ROS Review of System 14 point ROS conducted with pertinent positives noted above in HPI. PHYSICAL EXAM General: Alert, Oriented X3, Cooperative, No acute distress HEENT: Atraumatic Lungs: Clear to auscultation, Normal air movement Heart: Regular rate, Normal S1, Normal S2 (SB/SR rate near 55-60) Abdomen: Soft, No tenderness Extremities: No edema, Normal pulses Skin: No significant lesion Neuro: Normal speech, Sensation intact Psych/Mental Status: Mental status NL, Mood NL MUSCULOSKELETAL: Osteoarthritic changes both hands VITALS VITALS Vital Signs Date Time Temp Pulse Resp B/P (MAP) Pulse Ox O2 Delivery O2 Flow Rate FiO2 10/25/18 12:00 97.5 56 18 148/57 (87) Room Air 97.5 10/25/18 08:00 96 2.0 LABS Lab: Laboratory Tests Test 10/24/18 13:28 10/24/18 14:05 White Blood Count 6.4 x10^3/uL (4.0-11.0) Red Blood Count 4.27 x10^6/uL (3.50-5.40) Hemoglobin 12.9 g/dL (12.0-15.5) Hematocrit 38.7 % (36.0-47.0) Mean Corpuscular Volume 91 fL (79-100) Mean Corpuscular Hemoglobin 30 pg (25-35) Mean Corpuscular Hemoglobin Concent 33 g/dL (31-37) Red Cell Distribution Width 13.8 % (11.5-14.5) Platelet Count 195 x10^3/uL (140-400) Neutrophils (%) (Auto) 54 % (31-73) Lymphocytes (%) (Auto) 24 % (24-48) Monocytes (%) (Auto) 17 % (0-9) Eosinophils (%) (Auto) 5 % (0-3) Basophils (%) (Auto) 1 % (0-3) Neutrophils # (Auto) 3.4 x10^3uL (1.8-7.7) Lymphocytes # (Auto) 1.5 x10^3/uL (1.0-4.8) Monocytes # (Auto) 1.1 x10^3/uL (0.0-1.1) Eosinophils # (Auto) 0.3 x10^3/uL (0.0-0.7) Basophils # (Auto) 0.1 x10^3/uL (0.0-0.2) Sodium Level 142 mmol/L (136-145) Potassium Level 4.0 mmol/L (3.5-5.1) Chloride Level 104 mmol/L (98-107) Carbon Dioxide Level 29 mmol/L (21-32) Anion Gap 9 (6-14) Blood Urea Nitrogen 15 mg/dL (7-20) Creatinine 1.0 mg/dL (0.6-1.0) Estimated GFR (Cockcroft-Gault) 53.0 BUN/Creatinine Ratio 15 (6-20) Glucose Level 113 mg/dL (70-99) Lactic Acid Level 1.0 mmol/L (0.4-2.0) Calcium Level 9.5 mg/dL (8.5-10.1) Magnesium Level 1.9 mg/dL (1.8-2.4) Total Bilirubin 0.7 mg/dL (0.2-1.0) Aspartate Amino Transf (AST/SGOT) 20 U/L (15-37) Alanine Aminotransferase (ALT/SGPT) 19 U/L (14-59) Alkaline Phosphatase 77 U/L (46-116) Creatine Kinase 111 U/L (26-192) Troponin I Quantitative < 0.017 ng/mL (0.000-0.055) AF-Pyk-B-Type Natriuretic Peptide 548 pg/mL (0-449) Total Protein 7.2 g/dL (6.4-8.2) Albumin 3.6 g/dL (3.4-5.0) Albumin/Globulin Ratio 1.0 (1.0-1.7) Lipase 93 U/L (73-393) Urine Collection Type Void Urine Color Yellow Urine Clarity Clear Urine pH 6.0 Urine Specific [place] <=1.005 Urine Protein Negative mg/dL (NEG-TRACE) Urine Glucose (UA) Negative mg/dL (NEG) Urine Ketones (Stick) Negative mg/dL (NEG) Urine Blood Negative (NEG) Urine Nitrite Negative (NEG) Urine Bilirubin Negative (NEG) Urine Urobilinogen Dipstick 0.2 mg/dL (0.2 mg/dL) Urine Leukocyte Esterase Small (NEG) Urine RBC Rare /HPF (0-2) Urine WBC Rare /HPF (0-4) Urine Squamous Epithelial Cells Occ /LPF Urine Bacteria 0 /HPF (0-FEW) ECHOCARDIOGRAM ECHOCARDIOGRAM <Conclusion> The left ventricle is normal size. The left ventricular systolic function is low normal. LV ejection fraction is 50-55%. There is no significant aortic valvular stenosis. Doppler and Color Flow revealed no significant aortic regurgitation. Doppler and Color-flow revealed mild mitral regurgitation. Doppler and Color Flow revealed trace tricuspid regurgitation. The PA pressure was estimated at 25 mmHg. DATE: 08/11/18 1246 ASSESSMENT/PLAN ASSESSMENT/PLAN 1. Dizziness; recent event monitor with few episode of atrial tachycardia and one episode of NSVT. No significant bradycardia or pauses. 2. Bradycardia, sinus. Metoprolol discontinued. On Aricept at home 3. Possible carotid sinus hypersensitivity; 2-3 second pause noted with carotid massage. 4. Hypertension; elevated Recommendations Add Norvasc for BP control Continue losartan Avoid AV tung blocking agents. Consider alternative to Aricept Keep NPO p MN Consider for PPM. Will discuss with primary cardiology. ARELIS ROJAS MD 10/25/18 6196: CARDIAC CONSULT ASSESSMENT/PLAN ASSESSMENT/PLAN Patient seen and examined. Agree with HEALTH CARE COACH's assessment and plan. 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
--- NOTE | 2018-10-25 14:44 | NUR ---
SS following for discharge planning. SS reviewed pt chart. Pt is from home and is currently requiring oxygen. No discharge needs noted at this time. SS will continue to follow for discharge planning.
[2018-10-25 16:00] VITALS: BP 165/61
[2018-10-25] MEDS: amLODIPine BESYLATE 5 MG TABLET PO SCH (17:23)
[2018-10-25 20:00] VITALS: BP 166/62
[2018-10-25] MEDS ORDERED: DONEPEZIL HCL 5 MG TABLET. PO SCH (21:00)
[2018-10-26] VITALS (14 sets, daily range): BP systolic 110–151; BP diastolic 52–86
[2018-10-26] MEDS ORDERED: GLYCERIN ADULT 1 SUPP.RECT. PR PRN (07:30)
[2018-10-26] MEDS ORDERED: BISACODYL 5 MG TABLET.DR. PO PRN (07:30)
--- NOTE | 2018-10-26 07:30 | PDOC ---
PROGRESS NOTES Subjective Subjective Patient reports she has not had a bowel movement in several days, requests meds for this. No other complaint. Objective Objective Vital Signs Date Time Temp Pulse Resp B/P (MAP) Pulse Ox O2 Delivery O2 Flow Rate FiO2 10/26/18 04:07 97.9 57 20 138/59 (85) 96 Room Air 97.9 10/25/18 08:00 2.0 Intake and Output 10/26/18 06:59 Intake Total 1200 ml Balance 1200 ml Intake Oral 1200 ml # Voids 5 Physical Exam Abdomen: Normal bowel sounds, Soft, No tenderness Heart: Regular rate Extremities: No edema General: Alert, Oriented X3, No acute distress Lungs: Clear to auscultation Assessment Assessment Problems Medical Problems: (1) Bradycardia Status: Acute (2) Dizziness Status: Acute (3) Generalized weakness Status: Acute Plan Plan of Care 1. Bradycardia with carotid sinus hypersensitivity - HR mildly improved off Metoprolol, Cardiology plans pacemaker placement today. 2. HTN - controlled, continue present medications. 3. constipation - prn meds ordered. 4. mild memory loss - will d/c Aricept, patient has only resumed taking for a short time and does not have Alzheimer's dementia. Comment Review of Relevant I have reviewed the following items rajesh (where applicable) has been applied. Labs Laboratory Tests Test 10/24/18 13:28 10/24/18 14:05 10/25/18 09:40 White Blood Count 6.4 x10^3/uL (4.0-11.0) Red Blood Count 4.27 x10^6/uL (3.50-5.40) Hemoglobin 12.9 g/dL (12.0-15.5) Hematocrit 38.7 % (36.0-47.0) Mean Corpuscular Volume 91 fL (79-100) Mean Corpuscular Hemoglobin 30 pg (25-35) Mean Corpuscular Hemoglobin Concent 33 g/dL (31-37) Red Cell Distribution Width 13.8 % (11.5-14.5) Platelet Count 195 x10^3/uL (140-400) Neutrophils (%) (Auto) 54 % (31-73) Lymphocytes (%) (Auto) 24 % (24-48) Monocytes (%) (Auto) 17 % (0-9) Eosinophils (%) (Auto) 5 % (0-3) Basophils (%) (Auto) 1 % (0-3) Neutrophils # (Auto) 3.4 x10^3uL (1.8-7.7) Lymphocytes # (Auto) 1.5 x10^3/uL (1.0-4.8) Monocytes # (Auto) 1.1 x10^3/uL (0.0-1.1) Eosinophils # (Auto) 0.3 x10^3/uL (0.0-0.7) Basophils # (Auto) 0.1 x10^3/uL (0.0-0.2) Sodium Level 142 mmol/L (136-145) Potassium Level 4.0 mmol/L (3.5-5.1) Chloride Level 104 mmol/L (98-107) Carbon Dioxide Level 29 mmol/L (21-32) Anion Gap 9 (6-14) Blood Urea Nitrogen 15 mg/dL (7-20) Creatinine 1.0 mg/dL (0.6-1.0) Estimated GFR (Cockcroft-Gault) 53.0 BUN/Creatinine Ratio 15 (6-20) Glucose Level 113 mg/dL (70-99) Lactic Acid Level 1.0 mmol/L (0.4-2.0) Calcium Level 9.5 mg/dL (8.5-10.1) Magnesium Level 1.9 mg/dL (1.8-2.4) Total Bilirubin 0.7 mg/dL (0.2-1.0) Aspartate Amino Transf (AST/SGOT) 20 U/L (15-37) Alanine Aminotransferase (ALT/SGPT) 19 U/L (14-59) Alkaline Phosphatase 77 U/L (46-116) Creatine Kinase 111 U/L (26-192) Troponin I Quantitative < 0.017 ng/mL (0.000-0.055) GK-Kqi-C-Type Natriuretic Peptide 548 pg/mL (0-449) Total Protein 7.2 g/dL (6.4-8.2) Albumin 3.6 g/dL (3.4-5.0) Albumin/Globulin Ratio 1.0 (1.0-1.7) Lipase 93 U/L (73-393) Urine Collection Type Void Urine Color Yellow Urine Clarity Clear Urine pH 6.0 Urine Specific [place] <=1.005 Urine Protein Negative mg/dL (NEG-TRACE) Urine Glucose (UA) Negative mg/dL (NEG) Urine Ketones (Stick) Negative mg/dL (NEG) Urine Blood Negative (NEG) Urine Nitrite Negative (NEG) Urine Bilirubin Negative (NEG) Urine Urobilinogen Dipstick 0.2 mg/dL (0.2 mg/dL) Urine Leukocyte Esterase Small (NEG) Urine RBC Rare /HPF (0-2) Urine WBC Rare /HPF (0-4) Urine Squamous Epithelial Cells Occ /LPF Urine Bacteria 0 /HPF (0-FEW) Nasal Screen MRSA (PCR) Negative (Negative) Laboratory Tests Test 10/25/18 09:40 Nasal Screen MRSA (PCR) Negative (Negative) Medications Current Medications Aspirin (Ecotrin) 81 mg DAILY08 PO Last administered on 10/25/18 09:04; Start 10/25/18 at 08:00 Fluticasone Propionate (Flonase) 2 spray DAILY NS Last administered on 10/25/18at 09:08; Start 10/25/18 at 09:00 Losartan Potassium (Cozaar) 100 mg DAILY PO Last administered on 10/25/18at 09:07; Start 10/25/18 at 09:00 Benzonatate (Tessalon Perle) 100 mg PRN TID PRN PO COUGH; Start 10/25/18 at 09:00 Donepezil HCl (Aricept) 5 mg QHS PO Last administered on 10/25/18at 21:00; Start 10/25/18 at 21:00 Pantoprazole Sodium (Protonix) 40 mg DAILYAC PO Last administered on 10/25/18at 09:04; Start 10/25/18 at 09:00 Non-Formulary Medication (Ranitidine Hcl ) 150 mg BID PO ; Start 10/25/18 at 09:00; Status UNV Amlodipine Besylate (Norvasc) 5 mg DAILY PO Last administered on 10/25/18at 17:23; Start 10/25/18 at 17:00 Active Scripts Active Metoprolol Tartrate 25 Mg Tablet 1 Tab PO BID Reported Ranitidine Hcl 150 Mg Tablet 150 Mg PO BID Aricept (Donepezil Hcl) 5 Mg Tablet 1 Tab PO QHS Biofreeze (Menthol) 118 Ml Gel..ml. 118 Ml TP Benzonatate 200 Mg Capsule 1 Cap PO TID Allergy Relief (Clemastine Fumarate) 1.34 Mg Tablet 1.34 Mg PO DAILY Aspir-Low (Aspirin) 81 Mg Tablet. 81 Mg PO Caltrate 600+D Plus Tablet (Ca/D3/Mag#11/Zinc/Pipe Jeeper/Dmitriy/Bor) 1 Each Tablet 1 Each PO Centrum Silver Women Tablet (Multivits-Min/Iron/FA/Lutein) 1 Each Tablet 1 Each PO Fluticasone Propionate Nasal [place] (Fluticasone Propionate) 16 Gm [place].susp 2 [place] NS DAILY Losartan Potassium 50 Mg Tablet 100 Mg PO DAILY Protonix (Pantoprazole Sodium) 20 Mg Tablet. 40 Mg PO DAILY Vitals/I & O Vital Sign - Last 24 Hours 10/25/18 10/25/18 10/25/18 10/25/18 08:00 08:00 09:07 12:00 Temp 98.1 97.5 98.1 97.5 Pulse 56 63 56 Resp 18 18 B/P (MAP) 153/55 (87) 169/64 148/57 (87) Pulse Ox 96 96 O2 Delivery Room Air Nasal Cannula Room Air O2 Flow Rate 2.0 10/25/18 10/25/18 10/25/18 10/25/18 16:00 17:23 20:00 20:00 Temp 97.5 97.9 97.5 97.9 Pulse 58 58 51 Resp 20 14 B/P (MAP) 165/61 (95) 165/61 166/62 (96) Pulse Ox 95 95 O2 Delivery Room Air Room Air Room Air 10/26/18 10/26/18 00:02 04:07 Temp 97.5 97.9 97.5 97.9 Pulse 69 57 Resp 16 20 B/P (MAP) 138/57 (84) 138/59 (85) Pulse Ox 96 96 O2 Delivery Room Air Room Air Intake and Output 10/25/18 10/25/18 10/26/18 14:59 22:59 06:59 Intake Total 500 ml 550 ml 150 ml Balance 500 ml 550 ml 150 ml JANI PEREZ MD October 26, 2018 07:30
[2018-10-26] MEDS: ASPIRIN ENTERIC COATED 81 MG TABLET.DR. PO SCH (07:58)
[2018-10-26] MEDS: PANTOPRAZOLE 40 MG TABLET.DR. PO SCH (07:58)
[2018-10-26] MEDS: LOSARTAN POTASSIUM 50 MG TABLET. PO SCH (07:59)
[2018-10-26] MEDS: amLODIPine BESYLATE 5 MG TABLET PO SCH (08:00)
[2018-10-26] MEDS: FLUTICASONE 50MCG/NASAL SPRAY 16GM BOTTLE. NS SCH (08:00)
[2018-10-26] MEDS ORDERED: LIDOCAINE 2%/EPI 1:100,000 20 ML VIAL. ONE (08:27)
[2018-10-26 09:25] LABS: HEMATOCRIT 41.9 % (36.0-47.0); HEMOGLOBIN 13.9 g/dL (12.0-15.5); RED BLOOD COUNT 4.63 x10^6/uL (3.50-5.40); RED CELL DISTRIBUTION WIDTH 14.2 % (11.5-14.5)
[2018-10-26] MEDS ORDERED: ceFAZolin SODIUM IV Push 1 GM VIAL. IVP ONE ×2 (09:30→15:30)
[2018-10-26] MEDS ORDERED: BACITRACIN 50,000 UNIT in IV NORMAL SALINE 250ML 250 ML IRR ONE (09:30)
[2018-10-26 09:35] LABS: PROTHROMBIN TIME PATIENT 13.3 SEC (11.7-14.0)
[2018-10-26 09:53] LABS: CALCIUM 9.3 mg/dL (8.5-10.1); POTASSIUM 4.3 mmol/L (3.5-5.1)
[2018-10-26] MEDS ORDERED: MIDAZOLAM HCL/PF 5 MG/5 ML VIAL. ONE (10:10)
[2018-10-26] MEDS ORDERED: fentaNYL PF VIAL 250 MCG/5 ML VIAL ONE (10:10)
[2018-10-26] MEDS ORDERED: LIDOCAINE 2%/EPI 1:100,000 20 ML VIAL. IJ ONE (10:45)
[2018-10-26] MEDS ORDERED: MIDAZOLAM HCL/PF 5 MG/5 ML VIAL. IV ONE (10:45)
[2018-10-26] MEDS ORDERED: fentaNYL PF VIAL 250 MCG/5 ML VIAL IV ONE (10:45)
--- NOTE | 2018-10-26 11:34 | PDOC ---
MODERATE SEDATION ASSESSMENT RISKS/ALTERNATIVES Risks/Alternatives Risks and alternatives of this type of sedation and procedure discussed with: RISK/ALTERNATIVES: Patient H & P ON CHART H & P H & P on chart and reviewed for co-morbid conditions and appropriate labs. H&P ON CHART: Yes STATUS PREG STATUS ASSESSED: N/A MEDS/ALLERGIES REVIEWED Meds/Allergies Reviewed Medications and Allergies including time and route of recently administered narcotics and sedatives. MEDS/ALLERGIES REVIEWED: Yes ASA RATING ASA RATING: III AIRWAY ASSESSMENT Airway Assessment Airway patency, oral function limitations, presence of caps, crowns, dentures, partials, and ability to extend neck assessed. AIRWAY ASSESSMENT: Yes MALLAMPATI SCORE MALLAMPATI SCORE: II PRE-SEDATION ASSESSMENT PRE-SEDATION ASSESSMENT: Yes ARELIS ROJAS MD October 26, 2018 11:34
[2018-10-26] MEDS ORDERED: NO ANTICOAGULANT THERAPY. MC PRN (11:45)
[2018-10-26] MEDS ORDERED: ceFAZolin SODIUM 1 GM in IV DEXTROSE 5% 50 ML IV ONE (11:45)
--- NOTE | 2018-10-26 11:47 | CARD ---
MR#: [id number] Date of Study: 10/26/2018 Ordering Physician: JANI PEREZ, Referring Physician: JANI PEREZ, Tech: APPROVED REPORT PROCEDURES Successful implantation of [employer] dual-chamber permanent pacemaker Sedation Time: 45 minutes Fluoro Time: 2.8 Minutes Dose: 2.61 Gycm2 INDICATIONS Symptomatic carotid artery hypersensitivity syndrome PROCEDURE After explaining the risks, benefits, and alternative options, informed consent was obtained from the patient. The patient was brought to the cardiac catheterization lab and the right chest and shoulder were prep ped and draped in a sterile manner. 30 mL of 2% lidocaine was infiltrated into the skin and subcutaneous tissues for local anesthesia. An incision was made over the right infraclavicular fossa and using blunt dissection and cautery a pock et was created. Venous access was obtained in the right subclavian vein and 8.5 and 7 [place] sheaths inserted[address] A [employer] bipolar active fixation right ventricle lead model 2088TC/52, serial number [id number] wa s advanced under fluoroscopy guidance and the tip was positioned in the right ventricular apex. Follo wing this, a [employer] bipolar active fixation right atrial lead model 2088TC/46, serial number [id number] was positioned in the right atrial appendage under fluoroscopy guidance. The leads were secured into place and attached to a [employer] dual-chamber permanent pacemaker generator model IO0837, ser ial number [id number]. This was placed in the pocket that was subsequently closed in 3 layers. Hemostasi s was secured. There were no immediate complications. At the end of procedure, the right ventricular lead showed sensing amplitude of 11.9 mV, impedance of 700 ohms and a threshold of 0.5 V. The right atrial lead showed a sensing amplitude of 3.6 mV, imped ance of 460 ohms and a threshold of 0.75 V. CONCLUSION Successful implantation of [employer] dual-chamber permanent pacemaker for symptomatic carotid artery hypersensitivity syndrome. Signed by : Christopher Ro, Electronically Approved : 10/26/2018 11:46:37
--- NOTE | 2018-10-26 12:08 | RAD ---
EXAM: CHEST 1 VIEW History: Post pacemaker placement COMPARISON: 10/24/2018 TECHNIQUE: Single portable radiograph of the chest FINDINGS: The cardiac silhouette is unremarkable. Right-sided pacer is identified. No pneumothorax. The lungs are clear. IMPRESSION: Right-sided pacer in place. No pneumothorax. Electronically signed by: Sp Younger MD (10/26/2018 12:05 PM) [id number]
[2018-10-26] MEDS: ACETAMINOPHEN 500 MG TABLET PO PRN (15:12)
--- NOTE | 2018-10-26 16:50 | NUR ---
Patient transferred from ICU room 107 to 2 south room 246 at 1650. Patient A&OX3, a little forgetful. Patient states her pain from pacemaker placement is better. Dressing over pacemaker site is CDI. Immobilizer is in place on R arm. VSS. Will continue to monitor.
[2018-10-27 03:00] VITALS: BP 153/70
[2018-10-27] MEDS: ACETAMINOPHEN 500 MG TABLET PO PRN (05:54)
[2018-10-27] MEDS ORDERED: ceFAZolin SODIUM 1 GM in IV DEXTROSE 5% 50 ML IV ONE (06:00)
[2018-10-27 07:00] VITALS: BP 153/62
[2018-10-27] MEDS: PANTOPRAZOLE 40 MG TABLET.DR. PO SCH (07:57)
--- NOTE | 2018-10-27 08:16 | RAD ---
CHEST PA LATERAL History: 1 day post pacemaker implantation Comparison: AP chest, prior day. Findings: Stable right chest dual-chamber pacer. The cardiomediastinal silhouette is normal. Pulmonary vasculature is normal. Stable tiny calcified granuloma right lung base. Minimal biapical pleural parenchymal scarring. The lungs are clear. No pleural effusion or pneumothorax is seen. There is no acute bone abnormality. IMPRESSION: 1. Stable right chest dual-chamber pacer. 2. No acute cardiopulmonary process. Electronically signed by: Kermit Conte MD (10/27/2018 8:13 AM) [id number]
[2018-10-27] MEDS ORDERED: ACET500T68 PO (08:26)
[2018-10-27] MEDS ORDERED: ACETAMINOPHEN 500 MG TABLET PO PRN (08:30)
--- NOTE | 2018-10-27 08:30 | PDOC ---
PROGRESS NOTES Subjective Subjective Patient states she feels much better than at admission. Ready to go home later today. Pain OK with prn Tylenol. Objective Objective Vital Signs Date Time Temp Pulse Resp B/P (MAP) Pulse Ox O2 Delivery O2 Flow Rate FiO2 10/27/18 03:00 97.8 66 18 153/70 (97) 95 Room Air 97.8 10/26/18 11:40 2.0 Intake and Output 10/27/18 07:00 Intake Total 260 ml Output Total 100 ml Balance 160 ml Intake Oral 260 ml Output Urine Total 100 ml # Voids 5 # Bowel Movements 1 Physical Exam Abdomen: Normal bowel sounds, Soft, No tenderness Heart: Regular rate Extremities: No edema General: Alert, Oriented X3, No acute distress Lungs: Clear to auscultation Assessment Assessment Problems Medical Problems: (1) Bradycardia Status: Acute (2) Dizziness Status: Acute (3) Generalized weakness Status: Acute Plan Plan of Care 1. Carotid sinus hypersensitivity - POD #1 PPM placement. Stable, telemetry shows she is paced part of the time. Will resume her low dose Metoprolol today, further medication as per Cardiology. Anticipate home later today. 2. HTN - continue Losartan and Metoprolol. 3. constipation - not much result from the glycerin suppository yesterday, encouraged to take Dulcolax today. 4. mild memory loss - stable, continue supportive care. Do not feel she needs to resume the Aricept at this time. Comment Review of Relevant I have reviewed the following items rajesh (where applicable) has been applied. Labs Laboratory Tests Test 10/25/18 09:40 10/26/18 09:10 Nasal Screen MRSA (PCR) Negative (Negative) White Blood Count 5.0 x10^3/uL (4.0-11.0) Red Blood Count 4.63 x10^6/uL (3.50-5.40) Hemoglobin 13.9 g/dL (12.0-15.5) Hematocrit 41.9 % (36.0-47.0) Mean Corpuscular Volume 91 fL (79-100) Mean Corpuscular Hemoglobin 30 pg (25-35) Mean Corpuscular Hemoglobin Concent 33 g/dL (31-37) Red Cell Distribution Width 14.2 % (11.5-14.5) Platelet Count 213 x10^3/uL (140-400) Prothrombin Time 13.3 SEC (11.7-14.0) Prothromb Time International Ratio 1.0 (0.8-1.1) Sodium Level 141 mmol/L (136-145) Potassium Level 4.3 mmol/L (3.5-5.1) Chloride Level 105 mmol/L (98-107) Carbon Dioxide Level 29 mmol/L (21-32) Anion Gap 7 (6-14) Blood Urea Nitrogen 15 mg/dL (7-20) Creatinine 1.0 mg/dL (0.6-1.0) Estimated GFR (Cockcroft-Gault) 53.0 Glucose Level 113 mg/dL (70-99) Calcium Level 9.3 mg/dL (8.5-10.1) Magnesium Level 2.0 mg/dL (1.8-2.4) Laboratory Tests Test 10/26/18 09:10 White Blood Count 5.0 x10^3/uL (4.0-11.0) Red Blood Count 4.63 x10^6/uL (3.50-5.40) Hemoglobin 13.9 g/dL (12.0-15.5) Hematocrit 41.9 % (36.0-47.0) Mean Corpuscular Volume 91 fL (79-100) Mean Corpuscular Hemoglobin 30 pg (25-35) Mean Corpuscular Hemoglobin Concent 33 g/dL (31-37) Red Cell Distribution Width 14.2 % (11.5-14.5) Platelet Count 213 x10^3/uL (140-400) Prothrombin Time 13.3 SEC (11.7-14.0) Prothromb Time International Ratio 1.0 (0.8-1.1) Sodium Level 141 mmol/L (136-145) Potassium Level 4.3 mmol/L (3.5-5.1) Chloride Level 105 mmol/L (98-107) Carbon Dioxide Level 29 mmol/L (21-32) Anion Gap 7 (6-14) Blood Urea Nitrogen 15 mg/dL (7-20) Creatinine 1.0 mg/dL (0.6-1.0) Estimated GFR (Cockcroft-Gault) 53.0 Glucose Level 113 mg/dL (70-99) Calcium Level 9.3 mg/dL (8.5-10.1) Magnesium Level 2.0 mg/dL (1.8-2.4) Microbiology 10/24/18 Urine Culture - Final, Complete 10/24/18 Urine Culture Result 1 (ZEYNEP) - Final, Complete Medications Current Medications Aspirin (Ecotrin) 81 mg DAILY08 PO Last administered on 10/26/18at 07:58; Start 10/25/18 at 08:00 Fluticasone Propionate (Flonase) 2 spray DAILY NS Last administered on 10/07 06/26at 08:00; Start 10/25/18 at 09:00 Losartan Potassium (Cozaar) 100 mg DAILY PO Last administered on 10/26/18at 07:59; Start 10/25/18 at 09:00 Benzonatate (Tessalon Perle) 100 mg PRN TID PRN PO COUGH; Start 10/25/18 at 09:00 Donepezil HCl (Aricept) 5 mg QHS PO Last administered on 10/25/18at 21:00; Start 10/25/18 at 21:00; Stop 10/26/18 at 07:19; Status DC Pantoprazole Sodium (Protonix) 40 mg DAILYAC PO Last administered on 10/27/18at 07:57; Start 10/25/18 at 09:00 Non-Formulary Medication (Ranitidine Hcl ) 150 mg BID PO ; Start 10/25/18 at 09:00; Status UNV Amlodipine Besylate (Norvasc) 5 mg DAILY PO Last administered on 10/26/18at 08:00; Start 10/25/18 at 17:00 Glycerin (Sani-Supp Adult) 1 supp PRN DAILY PRN [place] CONSTIPATION Last administered on 10/26/18at 07:58; Start 10/26/18 at 07:30 Bisacodyl (Dulcolax Tab) 10 mg PRN DAILY PRN PO CONSTIPATION; Start 10/26/18 at 07:30 Lidocaine/ Epinephrine (LIDOCAINE 2%-EPI 1:100,000 multi-dose) 20 ml STK-MED ONCE .ROUTE ; Start 10/26/18 at 08:27; Stop 10/26/18 at 08:28; Status DC Cefazolin Sodium 1 gm/Dextrose 50 ml @ 100 mls/hr 1X ONCE IV ; Start 10/27/18 at 06:00; Stop 10/27/18 at 06:29; Status UNV Bacitracin 53870 unit/Sodium Chloride 250 ml @ 0 mls/hr 1X ONCE IRR Last administered on 10/26/18at 09:30; Start 10/26/18 at 09:30; Stop 10/26/18 at 09:31; Status DC Cefazolin Sodium (Ancef) 1 gm 1X ONCE IVP Last administered on 10/26/18at 09:30; Start 10/26/18 at 09:30; Stop 10/26/18 at 09:31; Status DC Midazolam HCl (Versed) 5 mg STK-MED ONCE .ROUTE ; Start 10/26/18 at 10:10; Stop 10/26/18 at 10:11; Status DC Fentanyl Citrate (Fentanyl 5ml Vial) 250 mcg STK-MED ONCE .ROUTE ; Start at 10:10; Stop 10/26/18 at 10:11; Status DC Cefazolin Sodium 50 ml @ As Directed STK-MED ONCE IV ; Start 10/26/18 at 10:10; Stop 10/26/18 at 10:11; Status DC Lidocaine/ Epinephrine (LIDOCAINE 2%-EPI 1:100,000 multi-dose) 20 ml 1X ONCE IJ Last administered on 10/26/18at 10:45; Start 10/26/18 at 10:45; Stop 10/26/18 at 10:46; Status DC Midazolam HCl (Versed) 5 mg 1X ONCE IV Last administered on 10/26/18at 10:45; Start 10/26/18 at 10:45; Stop 10/26/18 at 10:46; Status DC Fentanyl Citrate (Fentanyl 5ml Vial) 250 mcg 1X ONCE IV Last administered on 10/26/18at 10:45; Start 10/26/18 at 10:45; Stop 10/26/18 at 10:46; Status DC Info (No Anticoagulant Therapy) 1 ea CONT PRN PRN MC PER PROTOCOL; Start 10/26/18 at 11:45 Cefazolin Sodium 1 gm/Dextrose 50 ml @ 100 mls/hr 1X ONCE IV ; Start 10/26/18 at 11:45; Stop 10/26/18 at 12:14; Status UNV Cefazolin Sodium (Ancef) 1 gm 1X ONCE IVP Last administered on 10/26/18at 15:13; Start 10/26/18 at 15:30; Stop 10/26/18 at 15:31; Status DC Acetaminophen (Tylenol) 500 mg PRN Q6HRS PRN PO MILD PAIN / TEMP Last administered on 10/27/18at 05:54; Start 10/26/18 at 15:00 Active Scripts Active Metoprolol Tartrate 25 Mg Tablet 1 Tab PO BID Reported Ranitidine Hcl 150 Mg Tablet 150 Mg PO BID Aricept (Donepezil Hcl) 5 Mg Tablet 1 Tab PO QHS Biofreeze (Menthol) 118 Ml Gel..ml. 118 Ml TP Benzonatate 200 Mg Capsule 1 Cap PO TID Allergy Relief (Clemastine Fumarate) 1.34 Mg Tablet 1.34 Mg PO DAILY Aspir-Low (Aspirin) 81 Mg Tablet. 81 Mg PO Caltrate 600+D Plus Tablet (Ca/D3/Mag#11/Zinc/Machine Maintenance Repairer/Dmitriy/Bor) 1 Each Tablet 1 Each PO Centrum Silver Women Tablet (Multivits-Min/Iron/FA/Lutein) 1 Each Tablet 1 Each PO Fluticasone Propionate Nasal [place] (Fluticasone Propionate) 16 Gm [place].susp 2 [place] NS DAILY Losartan Potassium 50 Mg Tablet 100 Mg PO DAILY Protonix (Pantoprazole Sodium) 20 Mg Tablet.dr 40 Mg PO DAILY Vitals/I & O Vital Sign - Last 24 Hours 10/26/18 10/26/18 10/26/18 10/26/18 10:45 11:40 11:40 12:00 Temp 97.9 97.9 Pulse 92 74 Resp 14 16 B/P (MAP) 115/86 (96) 120/84 (96) Pulse Ox 100 100 98 94 O2 Delivery Nasal Cannula Room Air Room Air Room Air O2 Flow Rate 2.0 2.0 10/26/18 10/26/18 10/26/18 10/26/18 12:15 12:30 13:00 13:30 Pulse 74 76 78 76 Resp 16 16 16 16 B/P (MAP) 135/66 (89) 140/64 (89) 147/62 (90) 130/65 (86) Pulse Ox 94 94 95 95 O2 Delivery Room Air Room Air Room Air Room Air 10/26/18 10/26/18 10/26/18 10/26/18 14:00 15:00 16:50 17:45 Temp 97.7 97.7 97.7 97.7 Pulse 77 60 63 Resp 16 16 18 B/P (MAP) 110/63 (79) 111/52 (71) 144/61 (88) Pulse Ox 95 98 93 O2 Delivery Room Air Room Air Room Air Room Air 10/26/18 10/26/18 10/26/18 10/27/18 19:15 19:50 23:10 03:00 Temp 98.1 97.7 97.8 98.1 97.7 97.8 Pulse 63 66 66 Resp 20 18 18 B/P (MAP) 144/61 (88) 130/61 (84) 153/70 (97) Pulse Ox 93 95 95 O2 Delivery Room Air Room Air Room Air Room Air Intake and Output 10/26/18 10/26/18 10/27/18 15:00 23:00 07:00 Intake Total 60 ml 200 ml Output Total 100 ml Balance 60 ml -100 ml 200 ml JANI PEREZ MD October 27, 2018 08:30
[2018-10-27] MEDS: ASPIRIN ENTERIC COATED 81 MG TABLET.DR. PO SCH (09:00)
[2018-10-27] MEDS ORDERED: METOPROLOL TART IMMED RELEASE 25 MG TABLET. PO SCH (09:00)
[2018-10-27] MEDS: LOSARTAN POTASSIUM 50 MG TABLET. PO SCH (09:02)
[2018-10-27] MEDS: FLUTICASONE 50MCG/NASAL SPRAY 16GM BOTTLE. NS SCH (09:02)
[2018-10-27 11:00] VITALS: BP 137/79
--- NOTE | 2018-10-27 12:48 | PDOC ---
ANASTASIIA LOFTON Bertrand DRILLING ENGINEER 10/27/18 1248: CARDIO Progress Notes Date and Time Date of Service 10/27/2018 Time of Evaluation 1240 Subjective Subjective: No Chest Pain, No shortness of breath, No Palpitations Vitals Vitals Vital Signs Date Time Temp Pulse Resp B/P (MAP) Pulse Ox O2 Delivery O2 Flow Rate FiO2 10/27/18 09:02 82 153/70 10/27/18 07:30 Room Air 10/27/18 07:00 98.0 16 96 98.0 10/26/18 11:40 2.0 Weight Weight [ ] Input and Output Intake and Output Intake and Output 10/27/18 07:00 Intake Total 260 ml Output Total 100 ml Balance 160 ml Intake Oral 260 ml Output Urine Total 100 ml # Voids 5 # Bowel Movements 1 Microbiology Micro Microbiology 10/24/18 Urine Culture - Final, Complete 10/24/18 Urine Culture Result 1 (ZEYNEP) - Final, Complete Physical Exam HEENT: Neck Supple W Full Motion Chest: Symmetric LUNGS: Clear to Auscultation Heart: S1S2, RRR (SR with intermittent atrial pacing) Abdomen: Soft N/T Extremities: No Calf Tenderness Neurology: alert, oriented, follow commands Other Exams right chest surgical incision intact with steristrips, well approximated, minute sanguinous ooze but otherwise D/!, no swelling with mild irritation below the incision, WARDROBE COORDINATOR. Neurovascular status to right arm intact with sling. Assessment Assessment 1. Symptomatic CSH: S/P dual chamber St. PPM, no complications, repeat interrogation revealed normal function 2. HTN: controlled Recommendations 1. Refused to restart BB. Restart home losartan. HBPM bid x1 wk and call if outside parameter for further BP regimen adjustment 2. Follow up in office in 2 weeks for wound check 3. Posst PPM instruction provided, reinforced by staff. ARELIS ROJAS MD 10/27/18 2100: CARDIO Progress Notes Assessment Assessment Patient seen and examined. Agree with DEPUTY HARBORMASTER's assessment and plan. s/p PPM yesterday for carotid hypersensitivity syndrome CXR without pneumothorax Device check showed normal function OK for DC and follow up in one month ANASTASIIA LOFTON APRN October 27, 2018 12:48 ARELIS ROJAS MD October 27, 2018 21:00
--- NOTE | 2018-10-27 14:29 | NUR ---
Discharge Note: [facility] Discharge instructions and discharge home medications reviewed with Patient and Niece and a copy given. All questions have been answered and understanding verbalized. The following instructions and handouts were given: Dizziness, Pacemaker, weakness Discontinued lines and drains: Peripheral IV intact. Patient discharged to Home or Self Care with Family Member via Wheelchair
== END 2018-10-27 14:15 | disposition home or self-care (01) | DRG 41 ==
LOC: ER 12:35 → 1 WEST ICU 13:42 → 2 SOUTH 10-26 16:51
PROVIDERS: ADMIT Family Medicine; ATTEND Family Medicine
PROC: 0JH606Z Insertion of Pacemaker, Dual Chamber into Chest Subcutaneous Tissue and Fascia, Open Approach (ICD-10-PCS; principal; 2018-10-26)
PROC: 02HK3JZ Insertion of Pacemaker Lead into Right Ventricle, Percutaneous Approach (ICD-10-PCS; 2018-10-26)
PROC: 02H63JZ Insertion of Pacemaker Lead into Right Atrium, Percutaneous Approach (ICD-10-PCS; 2018-10-26)
DX: G90.01 Carotid sinus syncope (principal); I47.1 Supraventricular tachycardia; R00.1 Bradycardia, unspecified; I10 Essential (primary) hypertension; J30.9 Allergic rhinitis, unspecified; K21.9 Gastro-esophageal reflux disease without esophagitis; M19.90 Unspecified osteoarthritis, unspecified site; Z82.49 Family history of ischemic heart disease and other diseases of the circulatory system; Z90.12 Acquired absence of left breast and nipple; Z90.710 Acquired absence of both cervix and uterus; Z85.3 Personal history of malignant neoplasm of breast; Z88.2 Allergy status to sulfonamides; Z88.8 Allergy status to other drugs, medicaments and biological substances; Z90.722 Acquired absence of ovaries, bilateral
CPT/HCPCS: 33208; 36415; 70450; 71045; 71046; 80048; 80053; 81001; 82550; 83605; 83690; 83735; 83880; 84484; 85025; 85027; 85610; 87086; 87641; 93005; 99152; 99153; C1785; C1898; J0690; J2250; J3010; J3490; J7050; 99285-25; J7030

== ENCOUNTER → 2019-08-08 | Outpatient (CLI) | payer MEDICARE ==
[~2019-08-08] MED LIST changes: +ACET500T68 PO; +DONE5TAB56 PO; +METO25TA4 PO; +RANI150T2 PO
--- NOTE | 2019-08-08 15:46 | CARD ---
MR#: [id number] Date of Study: 08/08/2019 Ordering Physician: ARELIS ROJAS, Referring Physician: ARELIS ROJAS Tech: Erica Marcial RDCS APPROVED REPORT EXAM: Two-dimensional and M-mode echocardiogram with Doppler and color Doppler. Other Information Quality : Good INDICATION Carotid Artery Hypersensitivity Surgery/Intervention Pacemaker: Date: 05/2019 2D DIMENSIONS RVDd2.1 (2.9-3.5cm)Left Atrium(2D)3.1 (1.6-4.0cm) IVSd0.9 (0.7-1.1cm)Aortic Root(2D)2.6 (2.0-3.7cm) LVDd4.3 (3.9-5.9cm)LVOT Diameter2.1 (1.8-2.4cm) PWd0.9 (0.7-1.1cm)LVDs3.0 (2.5-4.0cm) FS (%) 31.5 %SV50.9 ml LVEF(%)59.7 (>50%) Aortic Valve AoV Peak Leon.115.4cm/sAoV VTI22.4cm AO Peak GR.5.3mmHgLVOT Peak Leon.79.1cm/s AO Mean GR.3mmHgAVA (VMAX)2.28cm2 DESEAN (VTI)2.50cm2 Mitral Valve MV E Rsjxkjyx09.7cm/sMV DECEL [id number] MV A Nzmgwckf128.4cm/sE/A Ratio0.7 Tricuspid Valve TR P. Avhvsdld588rl/sRAP HJTVOOOE1ugLk TR Peak Gr.64kfKyGNJJ42akAh Pulmonary Vein S1 Kmkoliff18.7cm/sD2 Lkuugwdp30.1cm/s LEFT VENTRICLE The left ventricle is normal size. There is normal left ventricular wall thickness. The left ventricu lar systolic function is normal. The Ejection Fraction is 55-60%. There is normal LV segmental wall m otion. Transmitral Doppler flow pattern is Grade I-abnormal relaxation pattern. RIGHT VENTRICLE The right ventricle is normal size. The right ventricular systolic function is normal. ATRIA The left atrium size is normal. The right atrium size is normal. The interatrial septum is intact wit h no evidence for an atrial septal defect or patent foramen ovale as noted on 2-D or Doppler imaging. AORTIC VALVE The aortic valve is calcified but opens well. Doppler and Color Flow revealed no significant aortic r egurgitation. There is no significant aortic valvular stenosis. MITRAL VALVE The mitral valve is mildly thickened. The chordae are calcified. There is no evidence of mitral valve prolapse. There is no mitral valve stenosis. Doppler and Color-flow revealed trace mitral regurgitat ion. TRICUSPID VALVE The tricuspid valve is normal in structure and function. Doppler and Color Flow revealed mild tricusp id regurgitation. The PA pressure was estimated at 27 mmHg. There is no tricuspid valve stenosis. PULMONIC VALVE The pulmonic valve is not well visualized. Doppler and Color Flow revealed mild pulmonic valvular reg urgitation. There is no pulmonic valvular stenosis. GREAT VESSELS The aortic root is normal in size. The ascending aorta is not well seen. The IVC is normal in size an d collapses >50% with inspiration. PERICARDIAL EFFUSION There is no evidence of significant pericardial effusion. Critical Notification Critical Value: No <Conclusion> The left ventricular systolic function is normal. The Ejection Fraction is 55-60%. There is normal LV segmental wall motion. Transmitral Doppler flow pattern is Grade I-abnormal relaxation pattern. Trace mitral regurgitation. Mild tricuspid regurgitation. The PA pressure was estimated at 27 mmHg. There is no evidence of significant pericardial effusion. Signed by : Arelis Rojas, Electronically Approved : 08/08/2019 15:46:03
== END ==
LOC: ECHO 12:40
PROVIDERS: ATTEND Internal Medicine Cardiovascular Disease
DX: I36.1 Nonrheumatic tricuspid (valve) insufficiency (principal); G90.01 Carotid sinus syncope
CPT/HCPCS: 93306

== ENCOUNTER → 2020-08-22 | Outpatient (CLI) | payer MEDICARE ==
--- NOTE | 2020-08-22 17:05 | CARD ---
MR#: [id number] Date of Study: 08/22/2020 Ordering Physician: ARELIS ROJAS, Referring Physician: ARELIS ROJAS Tech: Erica Marcial RDCS APPROVED REPORT EXAM: Two-dimensional and M-mode echocardiogram with Doppler and color Doppler. 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 Hahdwqiy503ph/sRAP BWBQIRVS3ugXd TR Peak Gr.46ceCzQPGR44xjKx Pulmonary Vein S1 Xhcbaztj54.3cm/sD2 Papnittb08.3cm/s LEFT VENTRICLE The left ventricle cavity is small. There is normal left ventricular wall thickness. Left ventricle s ystolic function is grossly normal. Ef 50-55% Apical motion consistent with pacemaker activation. Oth erwise, normal wall motion. Transmitral Doppler flow pattern is Grade I-abnormal relaxation pattern. RIGHT VENTRICLE The right ventricle is normal size. The right ventricular systolic function is normal. There is a pac emaker lead in the right ventricle. ATRIA The left atrium size is normal. The right atrium size is normal. A pacemaker is seen in the right atr ium consistent with history. The interatrial septum is intact with no evidence for an atrial septal d efect or patent foramen ovale as noted on 2-D or Doppler imaging. AORTIC VALVE The aortic valve is calcified but opens well. Doppler and Color Flow revealed no significant aortic r egurgitation. There is no significant aortic valvular stenosis. MITRAL VALVE The mitral valve is moderately thickened. The chordae are moderately calcified. There is no evidence of mitral valve prolapse. There is no mitral valve stenosis. Doppler and Color-flow revealed trace to mild mitral regurgitation. TRICUSPID VALVE The tricuspid valve is normal in structure and function. Doppler and Color Flow revealed mild tricusp id regurgitation. The PA pressure was estimated at 28 mmHg. There is no tricuspid valve stenosis. PULMONIC VALVE The pulmonic valve is not well visualized. Doppler and Color Flow revealed mild pulmonic valvular reg urgitation. There is no pulmonic valvular stenosis. GREAT VESSELS The aortic root is normal in size. The ascending aorta is not well seen. The IVC is normal in size an d collapses >50% with inspiration. PERICARDIAL EFFUSION There is no evidence of significant pericardial effusion. Critical Notification Critical Value: No <Conclusion> Left ventricle systolic function is grossly normal. EF 50-55% Apical motion consistent with pacemaker activation. Otherwise, normal wall motion. There is a pacemaker lead in the right ventricle. Doppler and Color Flow revealed mild tricuspid regurgitation. The PA pressure was estimated at 28 mmH g. Signed by : Donn Hernandez, Electronically Approved : 08/22/2020 17:05:10
== END ==
LOC: ECHO 12:44
PROVIDERS: ATTEND Internal Medicine Cardiovascular Disease
DX: I08.8 Other rheumatic multiple valve diseases (principal); G90.01 Carotid sinus syncope; Z95.0 Presence of cardiac pacemaker
CPT/HCPCS: 93306

== ENCOUNTER → 2021-08-28 | Outpatient (CLI) | payer MEDICARE ==
--- NOTE | 2021-08-28 17:28 | CARD ---
MR#: [id number] Date of Study: 08/28/2021 Ordering Physician: ARELIS ROJAS, Referring Physician: ARELIS ROJAS Tech: Sandy Pickens [facility] APPROVED REPORT EXAM: Two-dimensional and M-mode echocardiogram with Doppler and color Doppler. Other Information Quality : AverageHR: 68bpm Rhythm : NSR INDICATION Palpitations 2D DIMENSIONS RVDd3.0 (2.9-3.5cm)Left Atrium(2D)3.2 (1.6-4.0cm) IVSd1.0 (0.7-1.1cm)Aortic Root(2D)3.3 (2.0-3.7cm) LVDd3.6 (3.9-5.9cm)LVOT Diameter1.9 (1.8-2.4cm) PWd1.0 (0.7-1.1cm)LVDs2.6 (2.5-4.0cm) FS (%) 27.7 %SV29.6 ml Aortic Valve AoV Peak Leon.109.0cm/sAoV VTI25.3cm AO Peak GR.4.8mmHgLVOT Peak Leon.98.0cm/s AO Mean GR.2mmHgAVA (VMAX)2.49cm2 Mitral Valve MV E Jvppdtmo18.9cm/sMV DECEL [id number] MV A Vlipydry522.7cm/sE/A Ratio0.8 Pulmonary Valve PV Peak Egywhoep306.9cm/s Tricuspid Valve TR P. Tjohruta513ny/sTR Peak Gr.26mmHg LEFT VENTRICLE The Left Ventricle is at the upper limit of normal. There is normal left ventricular wall thickness. The left ventricular systolic function is normal and the ejection fraction is within normal range. L V ejection fraction of 50 to 55%. There is normal LV segmental wall motion. Transmitral Doppler flow pattern is Grade I-abnormal relaxation pattern. RIGHT VENTRICLE The right ventricle is normal size. There is normal right ventricular wall thickness. The right ventr icular systolic function is normal. ATRIA The left atrium size is normal. The right atrium size is normal. The interatrial septum is intact wit h no evidence for an atrial septal defect or patent foramen ovale as noted on 2-D or Doppler imaging. AORTIC VALVE The aortic valve is normal in structure and function. Doppler and Color Flow revealed no significant aortic regurgitation. There is no significant aortic valvular stenosis. MITRAL VALVE The mitral valve is normal in structure and function. There is no evidence of mitral valve prolapse. There is no mitral valve stenosis. Doppler and Color-flow revealed mild mitral regurgitation. TRICUSPID VALVE The tricuspid valve is normal in structure and function. Doppler and Color Flow revealed mild tricusp id regurgitation. Estimated PAP 26 mmHg. There is no tricuspid valve stenosis. PULMONIC VALVE The pulmonary valve is normal in structure and function. Doppler and Color Flow revealed mild pulmoni c valvular regurgitation. GREAT VESSELS The aortic root is normal in size. The ascending aorta is normal in size. The IVC is normal in size a nd collapses >50% with inspiration. PERICARDIAL EFFUSION There is no evidence of significant pericardial effusion. Critical Notification Critical Value: No <Conclusion> The Left Ventricle is at the upper limit of normal. The left ventricular systolic function is normal and the ejection fraction is within normal range. LV ejection fraction of 50 to 55%. Doppler and Color Flow revealed no significant aortic regurgitation. There is no significant aortic valvular stenosis. Doppler and Color-flow revealed mild mitral regurgitation. Doppler and Color Flow revealed mild tricuspid regurgitation. Estimated PAP 26 mmHg. Signed by : Shawn Hall MD Electronically Approved : 08/28/2021 17:28:20
== END ==
LOC: ECHO 10:21
PROVIDERS: ATTEND Internal Medicine Cardiovascular Disease
DX: I08.8 Other rheumatic multiple valve diseases (principal); G90.01 Carotid sinus syncope
CPT/HCPCS: 93306; C8929